=== PATIENT | female | born 1970 | race Hispanic/Latino ===

== ENCOUNTER 2023-01-06 07:02 | Day surgery (SDC) | payer OTHER ==
[~2023-01-06] VITALS: Ht 160 cm; Wt 71.5 kg
[~2023-01-06 07:02] MED LIST: CYCLOBENZAPRINE10 MG PO
[2023-01-06 07:28] VITALS: BP 113/77
--- NOTE | 2023-01-06 08:30 | NUR ---
0720: THIS RN AT THE BEDSIDE TO COMPLETE PROCEDURE CHECK IN. PT WISHES TO USE DAUGHTER FOR TRANSLATION PURPOSES RATHER THAN NIGHT GUARD SERVICES
--- NOTE | 2023-01-06 09:21 | NUR ---
01/06/23 0921 Dali Ceron 0916-PT TO PACU IN LL POSITION. EYES CLOSED. PT RESPONDS TO VERBAL AND TACTILE STIMULI AND FALLS QUICKLY BACK TO SLEEP WITHOUT RN STIMULI. BREATHING EASY AND UNLAOBRED. SPO2 >95% ON 2 L O2 VIA NC. PT ENCOURAGED TO PASS GAS. 0921-PT SLEEPING. BREATHING EASY AND UNLABORED. SPO2 >95% ON 2 L O2 A NC.
[2023-01-06 10:13] VITALS: BP 97/73
--- NOTE | 2023-01-07 07:32 | OR ---
[facility] [address], [place] [address] Signed DATE OF OPERATION: 01/06/2023 SURGEON: Jerardo Batres MD PREOPERATIVE DIAGNOSES: 1. Personal history of a 4 mm tubular adenomatous polyp at 7 cm in 2018 at age 47. 2. Minimal internal hemorrhoids. 3. Possible melanosis coli. POSTOPERATIVE DIAGNOSES: 1. Minimal internal hemorrhoids. 2. Well-healed polypectomy scar at 7 cm. 3. No melanosis coli. PROCEDURE: Colonoscopy with hot biopsy. ESTIMATED BLOOD LOSS: None. INDICATIONS: Manuela is a 52-year-old female, who always comes with her daughter and granddaughter. She speaks Tuvaluan only; however, the daughter and granddaughter are fluently bilingual. Nevertheless, we always have the medical interpreter on the phone line in the office. She had come back for followup colonoscopy. She has no lower GI complaints. There is no family history of colon cancer or polyps. She had a small 4 mm tubular adenomatous polyp at 7 cm in the rectum back in 2018 at age of 51. She had very little in the way of internal hemorrhoids. She had done well with Versed and fentanyl. She told me her constipation has resolved. In the office, I gave her brochures written in Tuvaluan and Taiwanese on colonoscopy. We reviewed the nature of the test. There is risk including, but not limited to gas bloating, crampy abdominal pain, bleeding, perforation requiring surgery, and missed diagnosis. I also gave them instructions for bowel prep written in Tuvaluan and in [place]ese. These were the same as she received in 2018. We went over those in detail as well. We asked her to hold the naproxen 3 days prior to the procedure. She has always done well with Versed and fentanyl. She understands an adult person asked to take her home afterwards. She had expressed understanding and wished to proceed. DESCRIPTION OF PROCEDURE: Manuela was taken into our endoscopy suite and placed into the left lateral decubitus Electronically Signed By: JERARDO BATRES MD 01/07/23 0732 PATIENT NAME: GILSON CARRILLO OPERATIVE REPORT DATE OF : 74 REPORT #: [id number] PHYSICIAN: JERARDO BATRES MD PCP: PROSPER URIBE REPORT IS CONFIDENTIAL AND NOT TO BE RELEASED WITHOUT AUTHORIZATION [facility] [address] [place] [id number] Signed position. She was given a total of 5 mg of Versed and 100 mcg of fentanyl to cover the case. A digital rectal exam was performed and this was unremarkable. There were no external hemorrhoids. She has good sphincter tone. There were no masses. The adult colonoscope was introduced, advanced all around into the cecum under direct visualization of camera. It took just a little extra sedation and mild abdominal compression in order to advance the scope to sigmoid and left colon. Her prep was quite excellent. The scope had been slowly withdrawn. We could easily see the appendiceal orifice and ileocecal valve. We took pictures throughout for photodocumentation. She had just a few diverticula in the right colon as well as the sigmoid colon. They were moderate in size, few in number and scattered about. Once in the rectum, we had retroflexed the scope, and there was little if any in the way of internal hemorrhoid columns. We could see the well-healed polypectomy scar about 7 cm. There were no additional polyps. There was no regrowth of any tissue around the polypectomy scar. After this, the gas was suctioned out, the colonoscope was removed. Manuela tolerated the procedure quite well. RECOMMENDATIONS: Manuela can follow up in 5 years for repeat colonoscopy. Jerardo Batres MD ALB/MODL /[id number] cc: Claus Montelongo, Physician Typewriter Repairer Jerardo Batres MD Patient Chart Copies: JERARDO BATRES MD ~ Electronically Signed By: JERARDO BATRES MD 01/07/23 0732 PATIENT NAME: CARRILLOGILSON COBIAN OPERATIVE REPORT DATE OF : 74 REPORT #: [id number] PHYSICIAN: JERARDO BATRES MD PCP: PROSPER URIBE REPORT IS CONFIDENTIAL AND NOT TO BE RELEASED WITHOUT AUTHORIZATION
== END 2023-01-06 10:30 | disposition home or self-care (01) ==
LOC: DS 07:02 → OPS 07:02 → DS 08:15 → OPS 10:30
PROVIDERS: ATTEND Colon & Rectal Surgery
PROC: 0DJD8ZZ Inspection of Lower Intestinal Tract, Via Natural or Artificial Opening Endoscopic (ICD-10-PCS; principal; 2023-01-06 08:15)
DX: Z09 Encounter for follow-up examination after completed treatment for conditions other than malignant neoplasm (principal); K64.0 First degree hemorrhoids; M19.90 Unspecified osteoarthritis, unspecified site; Z85.41 Personal history of malignant neoplasm of cervix uteri; Z86.010 Personal history of colon polyps
CPT/HCPCS: 84703; 99153; G0500; J2250; J3010; J7121